=== PATIENT | male | born 1955 | race Caucasian/White ===

== ENCOUNTER 2017-06-08 13:10 | Emergency (ER) | payer OTHER ==
[~2017-06-08] VITALS: Ht 193 cm; Wt 92.5 kg
[2017-06-08 13:13] VITALS: BP 174/92; PULSE 91; RESP 14; TEMP 98.2; O2SAT 98
[2017-06-08 13:16] VITALS: BP 167/88; PULSE 84
[2017-06-08] MEDS ORDERED: VITA1000 PO (13:26)
[2017-06-08] MEDS ORDERED: TEMA30CA PO (13:26)
[2017-06-08] MEDS ORDERED: MULT-65 PO (13:26)
[2017-06-08] MEDS ORDERED: AMLO5TAB2 PO (13:26)
[2017-06-08] MEDS ORDERED: MIRT1TAB PO (13:26)
[2017-06-08] MEDS ORDERED: MELO-1 PO (13:26)
--- NOTE | 2017-06-08 13:40 | PD ---
HPI Chief Complaint: Injury Time Seen by Provider: 13:27 Travel History International Travel<30 days: No Contact w/Intl Traveler<30days: No Traveled to known affect area: No History of Present Illness HPI 61-year-old male presents to emergency department complaint of right ankle pain after someone landed on it and injured it playing basketball yesterday. Denies paresthesias, loss of sensation to the affected extremity. Has been ambulatory on the affected extremity. Has iced it and elevated it. Has not taken any medications to alleviate symptoms. Symptoms are mild in severity. No known allergies. Has no other medical complaints. No other modifying factors or associated signs and symptoms. PFSH Past Medical History Anxiety: Yes Depression: Yes Cardiovascular Problems: Yes (HTN) Diminished Hearing: Yes (cataracts) Hypertension: Yes Insomnia: Yes Medical other: Yes (chronic neck and back pain) Influenza Vaccination: No ?: Not Social History Alcohol Use: No Tobacco Use: Yes (1/2 ppd) Substance Use: No Allergies-Medications (Allergen,Severity, Reaction): Coded Allergies: No Known Allergies (Verified , 06/08/17) Reported Meds & Prescriptions Reported Meds & Active Scripts Active Ibuprofen 800 Mg Tab 800 Mg PO Q8H PRN Reported Mirtazapine 7.5 Mg Tab 7.5 Mg PO HS Vitamin D-1000 (Cholecalciferol) 1,000 Unit Tab 1,000 Units PO DAILY Multi-Vitamin Daily (Multiple Vitamin) 1 Tab Tab 1 Tab PO DAILY Meloxicam 15 Mg Tab 15 Mg PO DAILY Temazepam 30 Mg Cap 30 Mg PO HS PRN Amlodipine (Amlodipine Besylate) 5 Mg Tab 5 Mg PO DAILY Review of Systems Except as stated in HPI: all other systems reviewed are Neg Physical Exam Narrative GENERAL: Well-nourished, well-developed black male patient, in no acute distress SKIN: Warm and dry. HEAD: Atraumatic. Normocephalic. EYES: Pupils equal and round. No scleral icterus. No injection or drainage. ENT: Mucosa pink and moist. Airway patent. NECK: Trachea midline. CARDIOVASCULAR: Regular rate. RESPIRATORY: No accessory muscle use. GASTROINTESTINAL: Flat. MUSCULOSKELETAL: Right ankle with point tenderness to the lateral, medial malleolar zones and the posterior aspect of the ankle; with edema and without erythema, ecchymosis; 2+ pedal pulse; sensory intact; no obvious deformity. No obvious deformities. No clubbing. No cyanosis. No edema. NEUROLOGICAL: Awake and alert. Oriented 3. No obvious cranial nerve deficits. Motor grossly within normal limits. Normal speech. PSYCHIATRIC: Appropriate mood and affect; insight and judgment normal. Data Data Last Documented VS Vital Signs Date Time Temp Pulse Resp B/P (MAP) Pulse Ox O2 Delivery O2 Flow Rate FiO2 06/08/17 13:16 84 167/88 (114) 06/08/17 13:13 98.2 14 98 Orders Orders Ankle, Complete (Ozt0cak) (06/08/17 13:40) Ibuprofen (Motrin) (06/08/17 13:45) MDM Medical Decision Making Medical Screen Exam Complete: Yes Emergency Medical Condition: Yes Medical Record Reviewed: Yes Differential Diagnosis Ankle sprain, ankle fracture, ankle injury Narrative Course 61-year-old male with right ankle injury. Ibuprofen administered in the ER. Right ankle x-ray ordered. 1458: Right ankle x-ray concludes: Last 24 hours Impressions Ankle X-Ray 06/08/17 1340 Signed Impressions: Service Date/Time: Thursday, June 08, 2017 13:38 - CONCLUSION: Negative for acute process. Gordon Chahal MD FACR Kirk bandage, ankle stirrup splint, crutches provided for support. Ibuprofen prescribed for home. Instructed patient to follow up with primary care provider. Patient verbalizes understanding and agreement with treatment plan. Patient is medically cleared and stable for discharge. Discussed reasons to return to the emergency department. Patient agrees with treatment plan. The patients vital signs are stable and the patient is stable for outpatient follow- up and treatment. Patient discharged home, stable and in no acute distress. Diagnosis Primary Impression: Right ankle injury Qualified Codes: S99.911A - Unspecified injury of right ankle, initial encounter Referrals: Primary Care Physician Patient Instructions: Ankle Sprain (ED), Crutch Instructions (ED), General Instructions Additional Instructions: Tylenol or ibuprofen as directed and as needed for pain and inflammation Rest, ice, compress, and elevate extremity to decrease pain and inflammation Ankle Brace for support Crutches for support Avoid aggravating activity; increase activity as tolerated Follow-up with primary care provider Return to the emergency department immediately with worsening of symptoms Med/Other Pt SpecificInfo: Prescription(s) given Scripts Ibuprofen (Ibuprofen) 800 Mg Tab 800 MG PO Q8H Y for PAIN SCALE 1 TO 10, #30 TAB 0 Refills Prov: Tiffanie Giraldo 06/08/17 Disposition: 01 DISCHARGE HOME Condition: Stable Tiffanie Giraldo Jun 08, 2017 13:40
[2017-06-08] MEDS ORDERED: IBUPROFEN 800 MG TAB PO ONE (13:45)
[2017-06-08] MEDS ORDERED: IBUP800T23 PO (13:50)
--- NOTE | 2017-06-08 14:28 | RADRPT ---
EXAM DATE/TIME: 06/08/2017 13:38 [facility] COMPARISON: No previous studies available for comparison. INDICATIONS : Right posterior ankle pain, injured playing basketball yesterday. MEDICAL HISTORY : None. SURGICAL HISTORY : None. ENCOUNTER: Initial ACUITY: 2 days PAIN SCORE: 6/10 LOCATION: Right posterior ankle FINDINGS: Three view exam was performed of the right ankle. The bony structures are in normal alignment. No e vidence of fracture, dislocation, or soft tissue swelling. The ankle mortise is intact. No radiopaq ue foreign bodies are seen. Bony mineralization is normal. CONCLUSION: Negative for acute process. Gordon Chahal MD FACR on June 08, 2017 at 14:25 Board Certified Radiologist. This report was verified electronically.
== END 2017-06-08 16:02 | disposition home or self-care (01) ==
LOC: NEPD 13:10
DX: S99.911A Unspecified injury of right ankle, initial encounter (principal); I10 Essential (primary) hypertension; X50.0XXA Overexertion from strenuous movement or load, initial encounter; Y93.67 Activity, basketball; Z72.0 Tobacco use
CPT/HCPCS: 73610; 99283; E0113; L1906

== ENCOUNTER 2018-07-19 11:00 | Observation (INO) ==
[2018-07-19 11:11] VITALS: TEMP 98.6
[2018-07-19 12:13] VITALS: RESP 18
[2018-07-19] MEDS ORDERED: Aluminum/Magnesium/Simethacone Susp 30 ML UDC PO ONE (12:18)
[2018-07-19 12:26] VITALS: O2SAT 100
[2018-07-19 12:38] LABS: Baso % (Auto) 0.5 % (0.0-2.0); Eos # (Auto) 0.1 th/mm3 (0.0-0.4); Eos % (Auto) 1.5 % (0.0-4.0); Hematocrit 43.9 % (39.0-51.0); Lymph % (Auto) 23.7 % (9.0-44.0); Mean Corpuscular HGB Conc 34.3 % (32.0-36.0); Mean Corpuscular Hemoglobin 31.4 pg (27.0-34.0); Mean Corpuscular Volume 91.5 fL (80.0-100.0); Mean Platelet Volume 8.5 fL (7.0-11.0); Mono # (Auto) 0.6 th/mm3 (0.0-0.9); Mono % (Auto) 7.4 % (0.0-8.0); Neut # (Auto) 5.6 th/mm3 (1.8-7.7); Neut % (Auto) 66.9 % (16.0-70.0); Platelet Count 192 th/mm3 (150-450); Red Blood Count 4.79 mil/mm3 (4.50-5.90); Red Cell Distribution Width 14.8 % (11.6-17.2); White Blood Count 8.4 th/mm3 (4.0-11.0)
--- NOTE | 2018-07-19 12:39 | ED ---
HPI General Chief Complaint: Chest Pain Stated Complaint: Chest Pain Complaint Time Seen by Provider: 07/19/18 12:11 Source: patient Mode of arrival: ambulatory Limitations: no limitations History of Present Illness HPI narrative: 62-year-old male with a history of hypertension presents to the emergency department for evaluation of chest pain that started about 2 AM this morning. He says the pain is midsternal described as tightness and 6/10 in severity. He states the pain is been constant without palliative or provocative factors. He denies history of chest pain previously. He denies shortness of breath, nausea or vomiting associated with it. he says he had a colonoscopy last and thought maybe this was related however, this pain did not occur immediately after the procedure. He says is a history of hypertension and smokes 1/2 pack/day of tobacco. He denies history of hyperlipidemia, diabetes, alcohol use. He has never had a stress test or echocardiogram of his heart. He denies illicit drug use. Related Data Home Medications Medication Instructions Recorded Confirmed alprazolam [Xanax] 1 mg PO DAILY PRN 07/19/18 07/19/18 amlodipine 10 mg PO DAILY 07/19/18 07/19/18 temazepam 30 mg PO HS PRN 07/19/18 07/19/18 Allergies Allergy/AdvReac Type Severity Reaction Status Date / Time No Known Allergies Allergy Verified 07/19/18 12:15 Review of Systems ROS: all other systems reviewed are negative PMFSH Medical History Medical History Anxiety (Acute) Hypertension (Acute) Insomnia (Acute) Surgical History Surgical History No history of previous surgery (Acute) Social History Social History Substance History: No History of Abuse Smoking Status: Current every day smoker Tobacco Type: Cigarettes How Often Do You Have a Drink Containing Alcohol: Never Recent Travel in [place] within the Last 8 Weeks: No Recent Out of Country Travel within the Last 8 Weeks: No Immunization History Tetanus Immunization: <5 Years Exam Narrative Exam Narrative: GENERAL: Well-developed, well-nourished in mild distress SKIN: Focused skin assessment warm/dry. HEAD: Atraumatic. Normocephalic. EYES: Pupils equal and round. No scleral icterus. No injection or drainage. ENT: No nasal bleeding or discharge. Mucous membranes pink and moist. NECK: Trachea midline. No JVD. CARDIOVASCULAR: Regular rate and rhythm. No murmur appreciated. No tenderness palpation of the chest wall RESPIRATORY: No accessory muscle use. Clear to auscultation. Breath sounds equal bilaterally. GASTROINTESTINAL: Abdomen soft, non-tender, nondistended. Hepatic and splenic margins not palpable. MUSCULOSKELETAL: No obvious deformities. No clubbing. No cyanosis. No edema. NEUROLOGICAL: Awake and alert. No obvious cranial nerve deficits. Motor grossly within normal limits. Normal speech. PSYCHIATRIC: Appropriate mood and affect; insight and judgment normal. Course Initial Documented Vital Signs Temperature 98.6 F 07/19/18 11:09 Pulse Rate 72 07/19/18 11:09 Respiratory Rate 16 07/19/18 11:09 Blood Pressure 141/91 H 07/19/18 11:09 Pulse Oximetry 97 07/19/18 11:09 Last Documented Vital Signs Temperature 98.6 F 07/19/18 11:09 Pulse Rate 53 L 07/19/18 14:24 Respiratory Rate 18 07/19/18 14:24 Blood Pressure 143/85 H 07/19/18 14:24 Pulse Oximetry 100 07/19/18 14:24 Clinical Decision Support HEART Score Questions History: Moderately suspicious EKG: Normal Age: 45-64 years Risk Factors: 1-2 Risk Factors Initial Troponin: Normal Limit Heart Score HEART Score: 3 Medical Decision Making MDM Narrative Medical decision making narrative: 62-year-old male presents to the emergency department for evaluation of midsternal chest pain that started this morning. He describes it as tightness and 6/10 in severity. The pain has been constant since the onset. He denies history of cardiac issues. States he has never had chest pain like this previously. Vital signs are stable. EKG shows sinus rhythm rate [address] elevation or depression. Aspirin 324 mg, nitro, and GI cocktail administered without relief of pain. Applied Nitropaste and morphine for pain relief. Based off a history of physical, and patient's persistent complaint of chest pain, I believe it is reasonable to admit this patient to the chest pain center to rule out ACS. Medical Screen Exam Complete: Yes Emergency Medical Condition: Yes Differential Diagnosis Differential Diagnosis: ACS, atypical chest pain, angina, esophagitis, GERD Lab Data Result diagrams: 07/19/18 12:15 07/19/18 12:15 Lab Results 07/19/18 07/19/18 07/19/18 Range/Units 12:15 12:15 12:15 WBC 8.4 (4.0-11.0) th/mm3 RBC 4.79 (4.50-5.90) mil/mm3 Hgb 15.0 (13.0-17.0) gm/dL Hct 43.9 (39.0-51.0) % MCV 91.5 (80.0-100.0) fL MCH 31.4 (27.0-34.0) pg MCHC 34.3 (32.0-36.0) % RDW 14.8 (11.6-17.2) % Plt Count 192 (150-450) th/mm3 MPV 8.5 (7.0-11.0) fL Neut % (Auto) 66.9 (16.0-70.0) % Lymph % (Auto) 23.7 (9.0-44.0) % Miner % (Auto) 7.4 (0.0-8.0) % Eos % (Auto) 1.5 (0.0-4.0) % Baso % (Auto) 0.5 (0.0-2.0) % Neut # (Auto) 5.6 (1.8-7.7) th/mm3 Lymph # (Auto) 2.0 (1.0-4.8) th/mm3 Min[place] # (Auto) 0.6 (0.0-0.9) th/mm3 Eos # (Auto) 0.1 (0.0-0.4) th/mm3 Baso # (Auto) 0.0 (0.0-0.2) th/mm3 WBC Differential . Differential Comment Auto diff final PT 10.3 (9.8-11.6) sec INR 1.0 Ratio APTT 26.8 (24.3-30.1) sec Sodium 141 (136-145) meq/L Potassium 3.8 (3.5-5.1) meq/L Chloride 109 H (98-107) meq/L Carbon Dioxide 26.4 (21.0-32.0) meq/L Anion Gap 6 (5-15) meq/L BUN 14 (7-18) mg/dL Creatinine 1.11 (0.60-1.30) mg/dL Estimated GFR 67 L (>89) mL/min Random Glucose 87 (74-106) mg/dL Calcium 8.5 (8.5-10.1) mg/dL Total Bilirubin 0.6 (0.2-1.0) mg/dL AST 23 (15-37) U/L ALT 26 (12-78) U/L Alkaline Phosphatase 68 (45-117) U/L Troponin I 0.02 (0.02-0.05) ng/mL Total Protein 8.2 (6.4-8.2) g/dL Albumin 4.0 (3.4-5.0) g/dL Imaging Data Radiologist's impression: Chest X-Ray 07/19/18 12:18 CONCLUSION: No acute intrathoracic disease. Discharge Plan Discharge Disposition Patient Disposition: 30 Still Patient Discharge Condition Condition: Stable Discharge Details Diagnosis: Chest pain Physicians Team ED Provider: Nina Maki ED Midlevel Provider: Suzette Sy Primary Care Provider: [facility] Attending Provider: Jimmy French Discharge Interventions Interventions: ED Discharge Assessment Last Done: 07/19/18 14:24 Status ED Status: Left Department Discharge Information Discharge Date/Time: 07/19/18 14:20
[2018-07-19 12:47] LABS: Activated Partial Thrombo Time 26.8 sec (24.3-30.1); Prothrombin Time 10.3 sec (9.8-11.6)
[2018-07-19 13:00] LABS: Alanine Aminotransferase 26 U/L (12-78); Anion Gap 6 meq/L (5-15); Aspartate Aminotransferase 23 U/L (15-37); Blood Urea Nitrogen 14 mg/dL (7-18); Calcium 8.5 mg/dL (8.5-10.1); Carbon Dioxide 26.4 meq/L (21.0-32.0); Chloride 109 meq/L (98-107); Glomerular Filtration Rate 67 mL/min (>89); Glucose,Random 87 mg/dL (74-106); Potassium 3.8 meq/L (3.5-5.1); Sodium 141 meq/L (136-145)
[2018-07-19 13:04] LABS: Alkaline Phosphatase 68 U/L (45-117); Total Protein 8.2 g/dL (6.4-8.2); Troponin I 0.02 ng/mL (0.02-0.05)
--- NOTE | 2018-07-19 13:14 | XR ---
EXAM DATE: 07/19/2018 12:18 PM EDT AGE/SEX: 62 years / Male INDICATIONS: Chest pain. CLINICAL DATA: This is the patient's initial encounter. Patient reports that signs and symptoms have been present for 1 day and indicates a pain score of 8/10. MEDICAL/SURGICAL HISTORY: None. None. COMPARISON: No prior exams available for comparison. FINDINGS: A single AP view of the chest demonstrates the lungs to be symmetrically aerated without evidence of mass, infiltrate or effusion. The cardiomediastinal contours are unremarkable. Osseous structures a re intact. CONCLUSION: No acute intrathoracic disease. Electronically signed by: Carlos José MD 07/19/2018 1:13 PM EDT
[2018-07-19] MEDS ORDERED: Morphine Inj 4 MG/ML Vial IV.PUSH PRN (13:21)
[2018-07-19] MEDS ORDERED: Morphine Sulfate Inj 2 MG/ML Vial IV.PUSH ONE (13:21)
[2018-07-19 14:26] VITALS: BP 143/85; PULSE 53
--- NOTE | 2018-07-19 14:49 | P.HPCA ---
History of Present Illness Primary Care Physician: Physician [facility] Chief Complaint: Chest pain History of Present Illness: This is a 62-year-old male with history of hypertension and chronic back pain and tobacco abuse that presents to ED with complaint of chest discomfort. He states he has had constant central chest tightness since 2:00 this morning. Really found nothing to worsen the symptoms. Worse level is 6 out of 10. He also had a sharp discomfort that would radiate to the left upper chest. That discomfort has resolved since getting IV morphine in the ED, his tightness in the chest also improved but is still present. Denies associated shortness of breath, nausea, or diaphoresis. States he has had a stress test in the past but has been many years. Denies recent illness. Denies fevers or chills. History of hypertension and chronic back pain. History of tobacco abuse. Denies hyperlipidemia, diabetes, and known CAD. His sister has history of congestive heart failure but he is really not aware of her ever having heart bypass or stents. Patient smokes about 1/2 pack of cigarettes daily. Denies alcohol or illicit drug use. - Diagnosis (1) Chest pain (2) Hypertension (3) Chronic back pain (4) Tobacco abuse Review of Systems General: Patient denies fevers, chills, and recent travel. HEENT: Patient denies headache, sore throat, difficulty swallowing. Cardiovascular: Has the chest discomfort as mentioned above. Denies sensation of heart beating rapidly or irregularly. No syncope. Denies diaphoresis. Respiratory: Denies shortness of breath or inspirational chest discomfort. Denies coughing wheezing or hemoptysis. GI: Patient denies nausea, vomiting, diarrhea, abdominal pain, bloody stools. Musculoskeletal: Patient denies joint pain or edema. Denies calf pain or edema. Neurovascular: Patient denies numbness, tingling, weakness in extremities. Denies headache. Endocrine: Denies polyuria and polydipsia. Hematologic: Denies easy bruising. Skin: Denies rash or itching. PMFSH - History History Provided By: Patient - Medical History Medical History: Medical History (Last Updated 07/19/18 @ 12:12 by Teri Mi) Anxiety Hypertension Insomnia - Surgical History Surgical History: Surgical History (Last Updated 07/19/18 @ 12:12 by Teri Mi) No history of previous surgery - Tobacco History Tobacco Use In Past 30 Days: Yes Smoking Status: Current every day smoker Tobacco Type: Cigarettes - Alcohol History How Often Do You Have a Drink Containing Alcohol: Never - Substance Use History Substance History: No History of Abuse - Travel History Recent Travel in the [place] Within the Last 8 Weeks: No Recent Travel Out of the Country Within the Last 8 Weeks: No - Immunization History Tetanus Immunization: <5 Years Medications and Allergies Active Medications: Active Medications Morphine Sulfate (Morphine Inj) 2 mg IV.PUSH Q4H PRN PRN Reason: PAIN SCALE 8 TO 10 Ondansetron HCl (Zofran Inj) 4 mg IV.PUSH Q6H PRN PRN Reason: NAUSEA Sodium Chloride (Ns Flush) 2 ml IV.FLUSH UNSCH PRN PRN Reason: FLUSH AFTER USING IV ACCESS Last Admin: 07/19/18 12:28 Dose: 2 ml Sodium Chloride (Ns Flush) 2 ml IV.FLUSH PRN PRN PRN Reason: FLUSH AFTER USING IV ACCESS Last Admin: 07/19/18 13:31 Dose: 2 ml Sodium Chloride (Ns Flush) 2 ml IV.FLUSH BID [facility] Allergies Allergy/AdvReac Type Severity Reaction Status Date / Time No Known Allergies Allergy Verified 07/19/18 12:15 Home Medications Medication Instructions Recorded Confirmed Type alprazolam [Xanax] 1 mg PO DAILY PRN 07/19/18 07/19/18 History amlodipine 10 mg PO DAILY 07/19/18 07/19/18 History temazepam 30 mg PO HS PRN 07/19/18 07/19/18 History Exam Vital signs: Vital Signs 07/19/18 11:09 07/19/18 12:12 07/19/18 12:26 Temperature 98.6 F Pulse Rate 72 56 L 56 L Respiratory Rate 16 18 Blood Pressure 141/91 H 143/88 H Pulse Oximetry 97 99 100 07/19/18 14:24 Temperature Pulse Rate 53 L Respiratory Rate 18 Blood Pressure 143/85 H Pulse Oximetry 100 Intake & Output 07/18/18 07/19/18 07/19/18 18:59 06:59 18:59 Weight 95.254 kg Narrative: GENERAL: This is a well-nourished, well-developed patient, in no apparent distress. Patient speaks in clear complete sentences. Patient is pleasant. HEENT: Head is atraumatic and normocephalic. Neck is supple without lymphadenopathy and trachea is midline. No JVD or carotid bruits. CARDIOVASCULAR: Regular rate and rhythm without murmurs, gallops, or rubs. RESPIRATORY: Clear to auscultation. Breath sounds equal bilaterally. No wheezes , rales, or rhonchi. Chest wall is tender. No use of accessory muscles. GASTROINTESTINAL: Abdomen is nontender, nondistended. Abdomen soft. No obvious pulsatile mass or bruit. No CVA tenderness. Strong femoral pulses bilaterally. Normal bowel sounds in all quadrants. MUSCULOSKELETAL: Patient is moving upper and lower extremities freely. No calf tenderness or edema, no Homans sign. Strong pulses in upper and lower extremities. NEUROLOGICAL: Patient is alert and oriented. Cranial nerves 2-12 are grossly intact. No focal deficits and speech is clear. SKIN: No rash and turgor is normal. Results 07/19/18 12:15 07/19/18 12:15 Cardiac Enzymes 07/19/18 Range/Units 12:15 AST 23 (15-37) U/L Troponin I 0.02 (0.02-0.05) ng/mL Coagulation 07/19/18 Range/Units 12:15 PT 10.3 (9.8-11.6) sec APTT 26.8 (24.3-30.1) sec CBC 07/19/18 Range/Units 12:15 WBC 8.4 (4.0-11.0) th/mm3 RBC 4.79 (4.50-5.90) mil/mm3 Hgb 15.0 (13.0-17.0) gm/dL Hct 43.9 (39.0-51.0) % Plt Count 192 (150-450) th/mm3 Neut # (Auto) 5.6 (1.8-7.7) th/mm3 Lymph # (Auto) 2.0 (1.0-4.8) th/mm3 [place] # (Auto) 0.6 (0.0-0.9) th/mm3 Eos # (Auto) 0.1 (0.0-0.4) th/mm3 Baso # (Auto) 0.0 (0.0-0.2) th/mm3 Comprehensive Metabolic Panel 07/19/18 Range/Units 12:15 Sodium 141 (136-145) meq/L Potassium 3.8 (3.5-5.1) meq/L Chloride 109 H (98-107) meq/L Carbon Dioxide 26.4 (21.0-32.0) meq/L BUN 14 (7-18) mg/dL Creatinine 1.11 (0.60-1.30) mg/dL Calcium 8.5 (8.5-10.1) mg/dL AST 23 (15-37) U/L ALT 26 (12-78) U/L Alkaline Phosphatase 68 (45-117) U/L Total Protein 8.2 (6.4-8.2) g/dL Albumin 4.0 (3.4-5.0) g/dL Intake and Output 07/18/18 07/19/18 07/19/18 22:59 06:59 14:59 Other: Weight 95.254 kg Patient Weight 07/20/18 06:59 Weight 95.254 kg - Imaging and Cardiology Imaging: Impressions Chest X-Ray 07/19/18 12:18 CONCLUSION: No acute intrathoracic disease. EKG interpretations - EKG EKG shows: sinus rhythm (Initial EKG is sinus rhythm without significant ST segment depressions or elevations.) Caprini VTE Risk Assessment Caprini VTE Risk Assessment: Moderate/High Risk (score >= 2) Caprini Risk Assessment Model: Point Value = 1 Point Value = 2 Point Value = 3 Point Value = 5 Age 41-60 Minor surgery BMI > 25 kg/m2 Swollen legs Varicose veins or History of unexplained or recurrent spontaneous Oral contraceptives or hormone replacement Sepsis (< 1 month) Serious lung disease, including pneumonia (< 1 month) Abnormal pulmonary function Acute myocardial infarction Congestive heart failure (< 1 month) History of inflammatory bowel disease Medical patient at bed rest Age 61-74 Arthroscopic surgery Major open surgery (> 45 min) Laparoscopic surgery (> 45 min) Malignancy Confined to bed (> 72 hours) Immobilizing plaster cast Central venous access Age >= 75 History of VTE Family history of VTE Factor V Leiden Prothrombin [id number] Lupus anticoagulant Anticardiolipin antibodies Elevated serum homocysteine Heparin-induced thrombocytopenia Other congenital or acquired thrombophilia Stroke (< 1 month) Elective arthroplasty Hip, pelvis, or leg fracture Acute spinal cord injury (< 1 month) Prophylaxis Regimen: Total Risk Factor Score Risk Level Prophylaxis Regimen 0-1 Low Early ambulation 2 Moderate Order ONE of the following: *Sequential Compression Device (SCD) *Heparin 5000 units SQ BID 3-4 Higher Order ONE of the following medications: *Heparin 5000 units SQ TID *Enoxaparin/Lovenox 40 mg SQ daily (WT < 150 kg, CrCl > 30 mL/min) *Enoxaparin/Lovenox 30 mg SQ daily (WT < 150 kg, CrCl > 10-29 mL/min) *Enoxaparin/Lovenox 30 mg SQ BID (WT < 150 kg, CrCl > 30 mL/min) AND/OR *Sequential Compression Device (SCD) 5 or more Highest Order ONE of the following medications: *Heparin 5000 units SQ TID (Preferred with Epidurals) *Enoxaparin/Lovenox 40 mg SQ daily (WT < 150 kg, CrCl > 30 mL/min) *Enoxaparin/Lovenox 30 mg SQ daily (WT < 150 kg, CrCl > 10-29 mL/min) *Enoxaparin/Lovenox 30 mg SQ BID (WT < 150 kg, CrCl > 30 mL/min) AND *Sequential Compression Device (SCD) Assessment and Plan - Assessment (1) Chest pain Code(s): R07.9 - Chest pain, unspecified Status: Acute (2) Hypertension Code(s): I10 - Essential (primary) hypertension Status: Acute (3) Chronic back pain Code(s): M54.9 - Dorsalgia, unspecified; G89.29 - Other chronic pain Status: Acute (4) Tobacco abuse Code(s): Z72.0 - Tobacco use Status: Acute - Plan * Chest pain: Symptoms seem atypical. He was seen by Dr. Jimmy French of cardiology in the chest pain center. He will undergo a Lexiscan. He would be discharged home if the stress test is nonischemic with instructions to follow- up with PCP. Return to ED for interval issues. * Hypertension: Continue medication. * Chronic back pain: Follow-up with his physician. PRN meds provided. * Tobacco abuse: Patient counseled on the importance of smoking cessation. Patient is stable at this time. He is agreeable to this plan.
[2018-07-19] MEDS ORDERED: Regadenoson Inj 0.4 MG/5 ML Syringe IV.PUSH ONE (14:57)
[2018-07-19] MEDS ORDERED: Ketorolac Inj 30 MG/ML (IVP) Vial IV.PUSH ONE (15:00)
--- NOTE | 2018-07-19 16:25 | NM ---
EXAM DATE: 07/19/2018 2:53 PM EDT AGE/SEX: 62 years / Male INDICATIONS:Angina. . Substernal chest pain. CLINICAL DATA: This is the patient's initial encounter. Patient reports that signs and symptoms have been present for 1 day and indicates a pain score of 4/10. MEDICAL/SURGICAL HISTORY: Hypertension. None. COMPARISON: No prior exams available for comparison. DOSE: 8.5 mCi Tc 99m Myoview at rest 25.4 mCi [id number] at stress 0.4 mg Lexiscan STRESS SYMPTOMS: Chest pain and dyspnea. EJECTION FRACTION: 54 % TECHNIQUE: The patient underwent pharmacologic stress with infusion of prescribed dose. Continuous ECG tracing was monitored during stress. Gated SPECT imaging was performed after stress and conventi onal SPECT imaging was performed at rest. The examination was performed on a SPECT/CT scanner, both attenuation and non-corrected datasets were reviewed. FINDINGS: Distribution: The maximum perfused segment at stress is in the septal wall. Perfusion Study: The pattern of perfusion at stress is within normal limits. Gated Study: There are intact wall motion and wall thickening without hypokinetic or dyskinetic segm ents. The ejection fraction is calculated at 54%. RISK CATEGORY: Low (<1% Annual Motality Rate) CONCLUSION: 1. Unremarkable myocardial perfusion examination. Electronically signed by: Carlos José MD 07/19/2018 4:24 PM EDT
--- NOTE | 2018-07-20 07:51 | ECG ---
Date Performed: 07/19/2018 Time Performed: 11:17:14 PTAGE: 62 years EKG: Sinus rhythm WITH FIRST DEGREE AV BLOCK VOLTAGE CRITERIA FOR LVH ABNORMAL ECG Since PREVIOUS TRACING , no significant change noted PREVIOUS TRACIN12/27/2004 10.55 DOCTOR: Jeannine Schwartz Interpretating Date/Time 07/20/2018 07:49:19
--- NOTE | 2018-07-20 07:55 | TR ---
Date Performed: 07/19/2018 Time Performed: 15:07:47 DOCTOR: Jeannine Schwartz DRUG LIST: CLINICAL HISTORY: REASON FOR TEST: REASON FOR ENDING: OBSERVATION: CONCLUSION: Lexiscan stress test was performed under standard four minute protocol. Radionuclid e was injected one minute prior to ending the test. No electrocardiographic abormalities were present to suggest ischemia. Nuclear imaging and interpretation are pending. COMMENTS: Lexiscan stress test was performed under standard four minute protocol. Radionuclide was injected one minute prior to ending the test. No electrocardiographic abormalities were present t o suggest ischemia. Nuclear imaging and interpretation are pending.
== END 2018-07-19 18:25 | disposition home or self-care (01) ==
LOC: NEDA 11:00 → NEPC 11:00 → NEPGCP 14:20
PROVIDERS: ADMIT Internal Medicine Cardiovascular Disease; ATTEND Internal Medicine Cardiovascular Disease
DX: M54.9 Dorsalgia, unspecified; R07.9 Chest pain, unspecified; G47.00 Insomnia, unspecified; G89.29 Other chronic pain; F17.210 Nicotine dependence, cigarettes, uncomplicated; I10 Essential (primary) hypertension; F41.9 Anxiety disorder, unspecified; Z82.49 Family history of ischemic heart disease and other diseases of the circulatory system; R94.31 Abnormal electrocardiogram [ECG] [EKG]